=== PATIENT | male | born 1990 | race African-American/Black ===

== ENCOUNTER 2017-04-06 16:27 | Emergency (ER) | payer MEDICAID ==
[~2017-04-06] VITALS: Ht 182.9 cm; Wt 67.0 kg
[2017-04-06 18:19] LABS: HEMATOCRIT. 46.2 % (42.0-52.0); MEAN CORPUSCULAR VOLUME 86.3 fL (80.0-94.0); MEAN PLATELET VOLUME 9.1 fl (7.4-10.4); PLATELET 178 x1000/uL (130-400); RED BLOOD CELL COUNT 5.36 mill/uL (4.7-6.1); RED CELL DISTRIBUTION WIDTH 13.6 % (11.6-14.6)
[2017-04-06 18:23] LABS: CHLORIDE 103 mEq/L (98-107)
[2017-04-06 18:31] LABS: CARBON DIOXIDE 24 mEq/L (21-32)
[2017-04-06 18:39] LABS: INR 1.1; PROTHROMBIN TIME 11.2 sec
[2017-04-06] MEDS ORDERED: SODIUM CHLORIDE 0.9% 500 ML IV ONE (18:51)
[2017-04-06] MEDS ORDERED: MORPHINE SULFATE 4 MG/ML CPJ (NOT FOR IM USE) IV ONE (19:00)
[2017-04-06] MEDS ORDERED: ONDANSETRON HCL 4MG/2ML VIAL IV ONE (19:15)
[2017-04-06 19:32] LABS: PLATELET ESTIMATE NORMAL
[2017-04-06 20:16] VITALS: BP 138/82
[2017-04-06] MEDS ORDERED: ACETAMINOPHEN WITH CODEINE 300/30MG TABLET PO ONE (20:30)
== END 2017-04-06 20:24 | disposition home or self-care (01) ==
LOC: ER 18:20
DX: R10.84 Generalized abdominal pain (principal); R11.2 Nausea with vomiting, unspecified; R19.7 Diarrhea, unspecified; F17.200 Nicotine dependence, unspecified, uncomplicated; I12.0 Hypertensive chronic kidney disease with stage 5 chronic kidney disease or end stage renal disease; N18.6 End stage renal disease; Z99.2 Dependence on renal dialysis; Z88.0 Allergy status to penicillin; Z88.1 Allergy status to other antibiotic agents; Z88.2 Allergy status to sulfonamides
CPT/HCPCS: 36415; 80053; 83690; 85025; 85610; 93005; 96361; 96374; 96375; 99285; J2270; J2405; J7040; J7030

== ENCOUNTER 2019-03-26 14:32 | Emergency (ER) | payer MEDICAID, OTHER ==
[~2019-03-26] VITALS: Ht 185.4 cm; Wt 71.0 kg
[2019-03-26] MEDS ORDERED: SODIUM CHLORIDE 0.9% 1,000 ML IV ONE (15:26)
[2019-03-26] MEDS ORDERED: FAMOTIDINE 20MG/2ML VIAL IV STA (15:26)
[2019-03-26] MEDS ORDERED: MORPHINE SULFATE 4 MG/ML CPJ (NOT FOR IM USE) IV STA (15:26)
[2019-03-26] MEDS ORDERED: ONDANSETRON HCL 4MG/2ML INJ IV STA (15:26)
[2019-03-26 16:14] LABS: BASOPHILS % 0.4 % (0.0-2.0); EOSINOPHILS % 1.1 % (0.0-5.0); HEMATOCRIT. 47.3 % (42.0-52.0); HEMOGLOBIN. 15.8 g/dL (14.0-18.0); LYMPHOCYTES % 20.1 % (20.0-50.0); MEAN CORPUSCULAR VOLUME 87.1 fL (80.0-94.0); MEAN PLATELET VOLUME 9.3 fl (7.4-10.4); MONOCYTES % 8.4 % (2.0-8.0); PLATELET 149 x1000/uL (130-400); RED BLOOD CELL COUNT 5.43 mill/uL (4.7-6.1); RED CELL DISTRIBUTION WIDTH 12.7 % (11.6-14.6)
[2019-03-26 16:19] LABS: CHLORIDE 100 mEq/L (98-107)
[2019-03-26 17:07] VITALS: BP 117/57
== END 2019-03-26 17:14 | disposition home or self-care (01) ==
LOC: ER 14:43
DX: R10.13 Epigastric pain (principal); R11.2 Nausea with vomiting, unspecified
CPT/HCPCS: 36415; 80053; 83690; 85025; 96361; 96374; 96375; 99283; J2270; J2405; J3490; J7030

== ENCOUNTER 2019-07-20 15:58 | Emergency (ER) | payer MEDICAID, OTHER ==
[~2019-07-20] VITALS: Ht 188 cm; Wt 73.0 kg
[2019-07-20] MEDS ORDERED: MAGNESIUM/ALUMINUM HYDROXIDE/SIMETHICONE 30ML UDC PO STA (18:38)
[2019-07-20] MEDS ORDERED: MORPHINE SULFATE 4 MG/ML CPJ (NOT FOR IM USE) IV STA (18:38)
[2019-07-20] MEDS ORDERED: ONDANSETRON 4MG ODT PO STA (18:38)
[2019-07-20] MEDS ORDERED: DICYCLOMINE 10 MG/5 ML ORAL SYR PO STA (18:38)
[2019-07-20] MEDS ORDERED: VISCOUS LIDOCAINE 2% 15 ML UDC PO STA (18:38)
[2019-07-20] MEDS ORDERED: SODIUM CHLORIDE 0.9% 250 ML IV ONE (18:45)
[2019-07-20 20:05] LABS: BASOPHILS % 0.2 % (0.0-2.0); HEMATOCRIT. 51.9 % (42.0-52.0); HEMOGLOBIN. 17.5 g/dL (14.0-18.0); LYMPHOCYTES % 15.2 % (20.0-50.0); MEAN CORPUSCULAR HEMOGLOBIN 29.2 pg (28.0-32.0); MEAN CORPUSCULAR VOLUME 86.3 fL (80.0-94.0); MEAN PLATELET VOLUME 8.5 fl (7.4-10.4); MONOCYTES % 9.5 % (2.0-8.0); NEUTROPHILS % 75.1 % (40.0-76.0); PLATELET 218 x1000/uL (130-400); RED BLOOD CELL COUNT 6.02 mill/uL (4.7-6.1); RED CELL DISTRIBUTION WIDTH 13.1 % (11.6-14.6)
[2019-07-20 20:10] LABS: CHLORIDE 88 mEq/L (98-107)
[2019-07-20 20:53] VITALS: BP 127/89
== END 2019-07-20 21:12 | disposition home or self-care (01) ==
LOC: ER 15:58
DX: R10.33 Periumbilical pain (principal); N18.6 End stage renal disease; Z99.2 Dependence on renal dialysis; F17.210 Nicotine dependence, cigarettes, uncomplicated; Z71.6 Tobacco abuse counseling; F12.90 Cannabis use, unspecified, uncomplicated
CPT/HCPCS: 36415; 80053; 83690; 85025; 96361; 96374; 99284; 99406; J2270; J7050; Q0162; Z7610

== ENCOUNTER 2019-10-28 14:18 | Emergency (ER) | payer MEDICAID ==
[~2019-10-28] VITALS: Ht 185.4 cm; Wt 72.0 kg
[2019-10-28 14:31] VITALS: BP 120/65
== END 2019-10-28 17:31 | disposition left against medical advice (07) ==
LOC: ER 14:47
DX: E86.0 Dehydration (principal); R10.9 Unspecified abdominal pain; Z99.2 Dependence on renal dialysis; Z53.21 Procedure and treatment not carried out due to patient leaving prior to being seen by health care provider

== ENCOUNTER 2020-07-19 17:52 | Emergency (ER) | payer MEDICAID ==
[~2020-07-19] VITALS: Ht 182.9 cm; Wt 72.0 kg
[2020-07-19] MEDS ORDERED: MORPHINE SULFATE 10 MG/ML CPJ IM ONE (20:30)
[2020-07-19] MEDS ORDERED: ONDANSETRON HCL 4MG/2ML INJ IM ONE (20:30)
[2020-07-19 21:48] LABS: BASOPHILS % 0.3 % (0.0-2.0); EOSINOPHILS % 0.1 % (0.0-5.0); HEMATOCRIT. 45.6 % (42.0-52.0); HEMOGLOBIN. 15.1 g/dL (14.0-18.0); LYMPHOCYTES % 11.4 % (20.0-50.0); MEAN CORPUSCULAR HEMOGLOBIN 29.8 pg (28.0-32.0); MEAN PLATELET VOLUME 8.9 fl (7.4-10.4); MONOCYTES % 5.9 % (2.0-8.0); NEUTROPHILS % 82.3 % (40.0-76.0); PLATELET 164 x1000/uL (130-400); RED BLOOD CELL COUNT 5.07 mill/uL (4.7-6.1); RED CELL DISTRIBUTION WIDTH 12.9 % (11.6-14.6)
[2020-07-19 21:52] LABS: CHLORIDE 95 mEq/L (98-107)
[2020-07-19 21:54] LABS: PROTHROMBIN TIME 10.9 sec (9.6-11.0)
[2020-07-19 21:56] LABS: ETHANOL BLOOD < 10 mg/dL
[2020-07-19] MEDS ORDERED: MORPHINE SULFATE 4 MG/ML CPJ (NOT FOR IM USE) IV STA (22:17)
[2020-07-19] MEDS ORDERED: ONDANSETRON HCL 4MG/2ML INJ IV STA (22:17)
[2020-07-19] MEDS ORDERED: LEVOFLOXACIN 750MG PREMIX 150 ML IV ONE (22:30)
[2020-07-19 22:56] VITALS: BP 135/80
== END 2020-07-19 22:57 | disposition left against medical advice (07) ==
LOC: ER 17:52
DX: K37 Unspecified appendicitis (principal); Z88.0 Allergy status to penicillin; Z88.2 Allergy status to sulfonamides; Z88.1 Allergy status to other antibiotic agents; Z88.8 Allergy status to other drugs, medicaments and biological substances; Z99.2 Dependence on renal dialysis
CPT/HCPCS: 36415; 74176; 80053; 80320; 83690; 85025; 85610; 93005; 96372; 99285; J2270; J2405; G0480